=== PATIENT | female | born 1995 | race Asian ===

== ENCOUNTER 2018-11-24 14:36 | Emergency (ER) | payer OTHER ==
--- NOTE | 2018-11-24 15:11 | EDM.PDOC ---
ED HPI GENERAL MEDICAL PROBLEM - General Chief Complaint: Upper Extremity Injury/Pain Stated Complaint: R MIDDLE FINGER INJURY Time Seen by Provider: 11/24/18 15:11 - History of Present Illness INITIAL COMMENTS - FREE TEXT/NARRATIVE: 23-year-old female presents emergency room with a right middle finger injury. The patient was trying to open a door in the wind caught it slammed it right back shut unfortunately the end of her right middle finger in the way. This occurred about an hour prior to arrival. She has a curvilinear oblique orientated laceration. She is unable to move this finger. She is up-to-date on her tetanus. Patient denies any other medical conditions. She is visiting here from [facility] and it does not sound like her tetanus was updated before she came over and she doesn't believe she's had one in 10 years. This will be updated. Right Middle Finger-Middle Pain Score (Numeric/FACES): 10 - Related Data Allergies Allergy/AdvReac Type Severity Reaction Status Date / Time No Known Allergies Allergy Verified 11/24/18 14:54 Home Meds: Home Meds Cephalexin [Keflex] 500 mg PO Q6H #27 capsule 11/24/18 [Rx] Past Medical History - Past Health History Medical/Surgical History: Denies Medical/Surgical History Social & Family History - Tobacco Use Smoking Status *Q: Current Every Day Smoker Years of Tobacco use: 5 Packs/Tins Daily: 0.1 - Recreational Drug Use Recreational Drug Use: No Review of Systems - Review of Systems Review Of Systems: See Below Constitutional: Reports: No Symptoms Respiratory: Reports: No Symptoms Cardiovascular: Reports: No Symptoms GI/Abdominal: Reports: No Symptoms Genitourinary: Reports: No Symptoms, Other (Denies or any chance of) ED EXAM, GENERAL - Physical Exam Exam: See Below Exam Limited By: No Limitations General Appearance: Alert, No Apparent Distress Respiratory/Chest: No Respiratory Distress, Lungs Clear, Normal Breath Sounds Cardiovascular: Regular Rate, Rhythm, No Edema, No Murmur Extremities: Other (Examination of her right middle finger shows intact neurologic status sensation seems to be preserved. Capillary refill is normal the patient absolutely would not move her finger until we have emphasized the finger. After x-rays were obtained that did put into cc 1% lidocaine at the base of the finger yielding good anesthesia of the finger the patient could demonstrate good dorsiflexion of the distal interphalangeal joint palmar flexion was nonexistent.) ED TRAUMA EXTREMITY PROCEDURES - Laceration/Wound Repair Right Digit - 3rd (Middle) Lac/Wound Length In cm: 2.5 Appearance: Irregular, Clean Distal NVT: Neuro & Vascular Intact Anesthetic Type: Digital Local Anesthesia - Lidocaine (Xylocaine): 1% Plain Local Anesthetic Volume: 2cc Suture Size: 4-0 # of Sutures: 3 Suture Type: Nylon Tetanus Status Addressed: Yes (We thought she received a tetanus shot before she came over here but that is not the case so this is updated) Complications: No Course - Vital Signs Last Recorded V/S: Last Vital Signs Temp 36.6 C 11/24/18 14:54 Pulse 98 11/24/18 14:54 Resp 16 11/24/18 14:54 BP 119/90 11/24/18 14:54 Pulse Ox 100 11/24/18 14:54 - Orders/Labs/Meds Orders: Active Orders 24 hr Category Date Time Status Fingers Third Digit Lt F2 [CR] Stat Exams 11/24/18 15:32 Taken Meds: Medications Discontinued Medications Generic Name Dose Route Start Last Admin Trade Name Freq PRN Reason Stop Dose Admin Cephalexin 500 mg 11/24/18 18:16 Keflex PO 11/24/18 18:17 ONETIME ONE Lidocaine HCl 10 ml 11/24/18 16:33 11/24/18 16:51 Xylocaine 1% INJECT 11/24/18 16:34 10 ml ONETIME ONE Administration - Re-Assessments/Exams Free Text/Narrative Re-Assessment/Exam: 11/24/18 18:24 X-ray examination of the affected digit shows what looks like an avulsion type fracture at the palmar base of the distal phalanx he also has a little hermes deformity on the ulnar side of this digit. I did discuss the situation with Dr. Ordoñez who recommends the patient come to their office first thing Monday morning fasting anticipating giving this finger fixed in the meantime the patient will be splinted in a flexion position started on Keflex and she received 3 stitches to loosely approximate the wound. Departure - Departure Time of Disposition: 18:28 Disposition: Home, Self-Care 01 Clinical Impression: Fracture of distal phalanx of finger of right hand - Discharge Information Prescriptions: Cephalexin [Keflex] 500 mg PO Q6H #27 capsule Referrals: PCP,None [Primary Care Provider] - Forms: ED Department Discharge Additional Instructions: Return to the emergency room if any questions problems or worsening symptoms. Use Tylenol or Motrin as needed for discomfort. [facility]up with [facility] in [place] at 8:00 Monday morning. You should receive all the contact information and directions before you leave our department. Do not have anything to eat or drink after dinner on Monday. Keep your finger absolutely clean and dry you can change the dressing and replace it with the Band-Aid that will cover the whole area and antibiotic ointment. You have been started on a antibiotic get this filled after leaving the emergency room and take a dose before you go to bed tonight and then take one 4 times daily until all gone - My Orders Last 24 Hours: My Active Orders 11/24/18 15:32 Fingers Third Digit Lt F2 [CR] Stat - Assessment/Plan Last 24 Hours: My Active Orders 11/24/18 15:32 Fingers Third Digit Lt F2 [CR] Stat
[2018-11-24] MEDS ORDERED: Lidocaine 1% 10 ML MDV INJECT ONE (16:33)
[2018-11-24] MEDS ORDERED: Cephalexin 500 MG Cap PO ONE (18:16)
[2018-11-24] MEDS ORDERED: Diphtheria,Pertussis(Acell),Tetanus Vaccine 0.5 ML Syringe IM ONE (18:33)
--- NOTE | 2018-11-26 09:28 | CR ---
Right 3rd finger: Four views of the right 3rd finger were obtained. Comparison: No previous study. Soft tissue injury is identified distally. Small avulsion fracture is noted off the corner base of the distal phalanx. Ages of this is indeterminate and this may be acute or old. No proximal abnormality is seen. Impression: 1. Indeterminate avulsion fracture off the corner base of the distal phalanx. 2. Distal soft tissue injury. Diagnostic code #3
== END 2018-11-24 19:07 | disposition home or self-care (01) ==
LOC: JD.ED 14:36
DX: S62.632A Displaced fracture of distal phalanx of right middle finger, initial encounter for closed fracture (principal); F17.210 Nicotine dependence, cigarettes, uncomplicated; W23.0XXA Caught, crushed, jammed, or pinched between moving objects, initial encounter
CPT/HCPCS: 12001; 73140; 90471; 90700; 99283; A9270; J2001